=== PATIENT | female | born 1970 | race Two or more races ===

== ENCOUNTER 2024-03-01 11:14 | Emergency (ER) | payer OTHER ==
[~2024-03-01] VITALS: Ht 152.4 cm; Wt 81.6 kg
[2024-03-01] MEDS ORDERED: CYTOMEL5 MCG PO (11:39)
[2024-03-01] MEDS ORDERED: AMITRIPTYLINE H25 MG PO (11:39)
[2024-03-01] MEDS ORDERED: ETODOLAC200 MG (11:39)
[2024-03-01] MEDS ORDERED: HYDROXYCHLOROQ400 MG PO (11:40)
[2024-03-01] MEDS ORDERED: ELMIRON100 MG PO (11:40)
[2024-03-01] MEDS ORDERED: FEXMID7.5 MG (11:40)
[2024-03-01] MEDS ORDERED: LEVO-T100 MCG PO (11:41)
[2024-03-01] MEDS ORDERED: TAMSULOSIN HCL 0.4 MG CAP PO ONE ×2 (12:00→12:12)
[2024-03-01] MEDS ORDERED: KETOROLAC TROMETHAMINE 60 MG VIAL IM ONE ×2 (12:00→12:13)
[2024-03-01] MEDS ORDERED: CEFTRIAXONE SODIUM 1,000 MG VIAL IM ONE (12:00)
[2024-03-01] MEDS ORDERED: CEFTRIAXONE SODIUM 1,000 MG VIAL ONE (12:13)
[2024-03-01 12:56] LABS: HEMATOCRIT 38.5 % (36.0-45.00); HEMOGLOBIN 13.1 g/dL (12.0-15.00); MEAN CELL VOLUME 84.8 fL (80.00-100.00); MEAN CORPUSCULAR HEMOGLOBIN 28.9 pg (27.00-32.0); MEAN CORPUSCULAR HGB CONC 34.1 g/dl (32.0-36.0); PLATELET COUNT 308 K/uL (150-450); RED BLOOD COUNT 4.54 M/uL (4.00-6.00); RED CELL DISTRIBUTION WIDTH 15.1 % (11.5-14.5)
[2024-03-01 13:01] LABS: PH,URINE 5.5 (5.0-8.0); URINE APPEARANCE Cloudy; URINE BILIRRUBIN Negative (NEGATIVE); URINE BLOOD Large; URINE COLOR Yellow; URINE GLUCOSE Negative (NEGATIVE); URINE KETONE Negative (NEGATIVE); URINE LEUKOCYTE Large; URINE NITRATE Negative; URINE PROTEIN 30 (NEGATIVE); URINE UROBILINOGEN 0.2 E.U./dl
[2024-03-01 13:05] LABS: URINE BACTERIA 1155.3 uL (0.0-1933); URINE EPITHELIAL CELLS 11.2 uL (0.0-38.8); URINE RBC 567.8 uL (0.0-20.8)
[2024-03-01 13:15] LABS: URINE CAST 0.58 uL (0.0-1.40)
[2024-03-01] MEDS ORDERED: TAMS0.4C PO (13:20)
[2024-03-01] MEDS ORDERED: PEPCID AC20 MG PO (13:20)
[2024-03-01] MEDS ORDERED: BACTRIM DS TAB1 EACH PO (13:20)
[2024-03-01] MEDS ORDERED: PYRIDIUM DS200 MG PO (13:20)
== END 2024-03-01 13:25 | disposition home or self-care (01) ==
LOC: ER 11:16
PROVIDERS: General Practice
DX: N39.0 Urinary tract infection, site not specified (principal); E03.8 Other specified hypothyroidism
CPT/HCPCS: 36415; 96372; 99282; J0696; J1885